=== PATIENT | female | born 1950 | race Caucasian/White ===

== ENCOUNTER 2018-12-13 10:52 | Emergency (ER) | payer MEDICARE, MEDICAID ==
--- NOTE | 2018-12-13 12:06 | ED Physician Chart ---
ED Chief Complaint/HPI - Patient Information Date Seen:: 12/13/18 Time Seen:: 11:50 Chief Complaint:: feeling warm History of Present Illness:: Patient had sensation of her head feeling warm today. She's had some sensation of occipital and neck apparent discomfort for last 2 days. Her blood pressure at home was 177/103 this morning. No chest pain or shortness of breath. Patient was prescribed hydrochlorothiazide 25 mg twice a day but apparently with no prescription for potassium. Patient has been taking only hydrochlorothizide 25 mg per day only. Allergies:: Allergies Allergy/AdvReac Type Severity Reaction Status Date / Time No Known Allergies Allergy Verified 12/13/18 11:02 Vitals:: Vital Signs - 8 hr 12/13/18 11:09 Temp 97.9 F HR 74 RR 16 BP 153/54 O2 Sat % 99 Historian:: Patient Review:: Nurse's Note Reviewed ED Review of Systems - Review of Systems General/Constitutional: No fever, No chills Skin: No skin lesions Head: Headache Eyes: No loss of vision ENT: No earache Neck: Neck pain, No swelling Cardio Vascular: No chest pain, No palpitations Pulmonary: No SOB GI: No nausea, No vomiting, No diarrhea G/U: No dysuria Musculoskeletal: No bone or joint pain Endocrine: No polyuria, No polydipsia Psychiatric: No prior psych history, No depression, No anxiety Hematopoietic: No bruising Allergic/Immuno: No urticaria Neurological: No syncope, No focal symptoms, No dizziness ED Past Medical History - Past Medical History Past Medical History: HTN Family History: Heart disease Social History: Non Smoker, No Alcohol Surgical History: None Psychiatricy History: None Medication: Reviewed ED Physical Exam - Physical Examination General/Constitutional: Awake, Well-developed, well-nourished, Alert, No distress, GCS 15, Non-toxic appearing, Ambulatory Head: Atraumatic Eyes: Lids, conjuctiva normal, PERRL, EOMI Skin: Nl inspection, No rash, No skin lesions, No ecchymosis, Well hydrated, No lymphadenopathy ENMT: External ears, nose nl, Nasal exam nl, Lips, teeth, gums nl Neck: Nontender, Full ROM w/o pain, No JVD, No nuchal rigidity, No bruit, No mass, No stridor Respiratory: Nl effort/Exclusion, Clear to Auscultation, No Wheeze/Rhonchi/Rales Cardio Vascular: RRR, No murmur, gallop, rubs, NL S1 S2 GI: No tenderness/rebounding/guarding, No organomegaly, No hernia, Normal BS's, Nondistended, No mass/bruits, No McBurney tenderness : No CVA tenderness Extremities: No tenderness or effusion, Full ROM, normal strength in all extremities, No edema, Normal digits & nails Neuro/Psych: Alert/oriented, DTR's symmetric, Normal sensory exam, Normal motor strength, Judgement/insight normal, Mood normal, Normal gait, No focal deficits Misc: Normal back, No paraspinal tenderness ED Labs/Radiology/EKG Results - EKG Interpretations Rate & Rhythm: NSR with a rate of 69 [place]: normal ED Assessment - Assessment General Assessment: Patient's potassium is 3.9 which is at the low end of normal. I suggested she follow up with her PCP to see if he/she wants to either lower the dose of HCTZ or prescribe supplemental potassium. Patient's headache/neck pain are probably unrelated to her blood pressure. Informed patient that hypokalemia/ hypomagnesemia can cause serious cardiac arrhythmias. ED Septic Shock - . Is Septic Shock (SBP<90, OR Lactate>4 mmol\L) present?: No - <6hrs of presentation: Vital Signs: Vital Signs - 8 hr 12/13/18 11:09 Temp 97.9 F HR 74 RR 16 BP 153/54 O2 Sat % 99 ED Reassessment (Disposition) - Reassessment Reassessment Condition:: Unchanged - Diagnosis Diagnosis:: hypertension; non-specific cephalgia - Aftercare/Follow up Instructions Aftercare/Follow-Up Instructions:: Refer to Discharge Instructions - Patient Disposition Discharge/Transfer:: Home Condition at Disposition:: Stable, Unchanged
[2018-12-13 12:12] LABS: % BASOPHILS 0.3 % (0.0-2.0); % EOSINOPHILS 0.8 % (0.0-5.0); % LYMPHOCYTES 25.7 % (20.0-50.0); % MONOCYTES 8.3 % (2.0-10.0); % NEUTROPHILS 64.9 % (40.0-80.0); HEMATOCRIT 41.9 % (41.0-60); LYMPHOCYTE ABSOLUTE 1.5 Th/cmm (1.5-3.0); MEAN CELL VOLUME 88.7 fl (81-100); MEAN CORPUSCULAR HEMOGLOBIN 29.5 pg (27.0-31.0); MEAN CORPUSCULAR HGB CONC 33.3 pg (28.0-36.0); MEAN PLATELET VOLUME 8.5 fl; MONOCYTE ABSOLUTE 0.5 Th/cmm (0.3-1.0); PLATELET COUNT 216 Th/cmm (150-400); RED BLOOD COUNT 4.72 Mil/cmm (3.80-5.20); RED CELL DISTRIBUTION WIDTH 11.9 % (11.5-20.0)
[2018-12-13 12:28] LABS: BUN - UREA NITROGEN 13 mg/dL (7-25); CALCIUM SERUM 9.6 mg/dL (8.6-10.3); CARBON DIOXIDE 30.9 mEq/L (21.0-31.0); CHLORIDE 101 mEq/L (98-107); CREATININE - SERUM 0.5 mg/dL (0.6-1.2); GFR AFRICAN-AMERICAN > 60.0 ml/min (>90); GFR NON AFRICAN-AMERICAN > 60.0 ml/min; GLUCOSE 101 mg/dL (70-105); POTASSIUM SERUM 3.9 mEq/L (3.5-5.1); SODIUM SERUM 140 mEq/L (136-145)
== END 2018-12-13 13:30 | disposition home or self-care (01) ==
LOC: ER 10:52
DX: I10 Essential (primary) hypertension (principal); R51 Headache
CPT/HCPCS: 36415-UA; 80048-TC; 83735-TC; 85025-TC; 93005; Z7502; Z7610